=== PATIENT | male | born 1970 | race Caucasian/White ===

== ENCOUNTER 2021-05-11 07:20 | Outpatient (CLI) | payer OTHER, SELFPAY ==
--- NOTE | 2021-05-11 07:31 | XR_ITS ---
WS: [id number] 3 views of the left fifth finger, 05/11/2021 Clinical Data: AVULSION OF FINGERTIP Comparison: None. Findings: There is a soft tissue injury to the distal phalanx of the left fifth finger. There may be a small amrita ny fragment adjacent to the ungual tuft on the radial side of the distal phalanx. XR/XR finger LT min 2V [id number] Impression: Soft tissue injury to distal phalanx of left fifth finger.
== END 2021-05-11 07:21 | disposition home or self-care (01) ==
PROVIDERS: Visit Provider Orthopaedic Surgery
DX: S61.207A Unspecified open wound of left little finger without damage to nail, initial encounter (principal); X58.XXXA Exposure to other specified factors, initial encounter
CPT/HCPCS: 73140

== ENCOUNTER 2022-02-08 11:44 | Outpatient (CLI) | payer BC, MEDICAID, SELFPAY ==
[2022-02-08 12:08] VITALS: BMI 28.7
--- NOTE | 2022-02-08 12:11 | ECG_ITS ---
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 Interpretive Statements NAME OF STUDY: TREADMILL STRESS TEST INDICATION: Chest Pain, PROCEDURE: At the baseline, the patient's blood pressure was with a heart rate of. The baseline electrocardiogram showed sinus bradycardia with a some early repolarization changes. The patient exercised for 9 minutes on a standard Rashel protocol. Patient attained a maximum heart rate of 168 beats per minute(98% of the maximum predicted heart rate) with a blood pressure at the peak exercise of 155/80 mm Hg. The EKG at the peak exercise revealed no significant changes. Patient did not have any chest pain or any significant cardiac arrhythmias with the exercise During the recovery phase, there were no new changes. Blood pressure at the end of the recovery phase was 131/76 mm Hg with a heart rate of 97 per minute. CONCLUSION: 1. Normal EKG response to treadmill exercise 2. No exercise-induced chest pain or cardiac arrhythmia 3. Good exercise tolerance, attained a maximum of 10.2 METs Electronically Signed On 02-08-2022 14:15:39 CDT by Hardeep Marin M.D. [email or web address]
[2022-02-08 12:39] VITALS: BP 131/76; PULSE 97
== END 2022-02-08 11:45 | disposition home or self-care (01) ==
LOC: CDL 11:47
PROVIDERS: PCP Family Medicine; Visit Provider Family Medicine
DX: R07.9 Chest pain, unspecified (principal)
CPT/HCPCS: 93017

== ENCOUNTER 2022-03-26 05:56 | Outpatient (CLI) | payer BC, MEDICAID, SELFPAY ==
--- NOTE | 2022-03-26 | US_ITS ---
WS: [id number] TESTICULAR ULTRASOUND HISTORY: RIGHT testicle mass. COMPARISON: 02/26/2019 TECHNIQUE: Real-time and color Doppler imaging or utilized to perform a testicular ultrasound. Right testicle: 4.4 cm x 3.1 cm x 2.3 cm. Normal size testicle. No increased vascularity. Within the inferior wall of the testicle there is a v amy small nodule measuring 4 x 6 x 2 mm. Very nonspecific in etiology and could be a complex tunica a lbuginea cyst. This should be followed up by favor this will probably be benign. Normal color Doppler is present throughout. Systolic and diastolic velocities are both present. Small to moderate RIGHT hydrocele. Slightly increased since 2019. Right epididymis: Normal epididymis with no increased vascularity. Left testicle: 4.6 cm x 3.0 cm x 2.5 cm. Normal size and echogenicity. No mass or torsion. Normal color Doppler is present throughout. Systolic and diastolic velocities are both present. No significant hydrocele. Left epididymis: Normal epididymis with no increased vascularity. US/US scrotum [id number] IMPRESSION: 1. Small nodule in the periphery of the inferior RIGHT testicle measures 4 x 6 x 2 mm. Not definitely seen on the prior examination from 2019. Consider 3 mon th ultrasound follow-up. Favor this is probably benign and may be a complex chester ica albuginea cyst. 2. Small to moderate RIGHT hydrocele.
== END 2022-03-26 05:57 | disposition home or self-care (01) ==
LOC: RAD 05:56
PROVIDERS: PCP Family Medicine; Visit Provider Family Medicine
DX: N43.41 Spermatocele of epididymis, single (principal); I86.1 Scrotal varices; N49.2 Inflammatory disorders of scrotum; N43.3 Hydrocele, unspecified
CPT/HCPCS: 76870

== ENCOUNTER → 2022-04-13 07:19 | Outpatient (BNVA) | payer BC, MEDICAID, SELFPAY | PROVIDERS: PCP Family Medicine; Visit Provider Urology | DX: N43.3 Hydrocele, unspecified (principal) | CPT/HCPCS: 81003; 99203 ==

== ENCOUNTER → 2022-12-04 13:48 | Outpatient (BNVA) | payer BC, MEDICAID, SELFPAY | PROVIDERS: PCP Family Medicine; Visit Provider Urology | DX: N43.3 Hydrocele, unspecified (principal) | CPT/HCPCS: 81003 ==

== ENCOUNTER 2022-12-12 08:43 | Outpatient (CLI) | payer BC, MEDICAID, SELFPAY ==
--- NOTE | 2022-12-12 08:45 | MR_ITS ---
WS: [id number] MRI CERVICAL SPINE NONCONTRAST TECHNIQUE: Sagittal T1, T2 and STIR imaging. Axial T2, gradient, and fiesta imaging. CLINICAL INFORMATION: M54.2 - Cervicalgia COMPARISON: None. FINDINGS: Mild cervical curve. Straightening of the normal cervical lordosis. Slight anterolisthesis C6 on C7. C2-C3: Normal C3-C4: Mild facet arthropathy. Mild disc osteophytic ridging. Mild LEFT and no significant RIGHT fora bebeto narrowing. Mild facet arthropathy. C4-C5: Disc osteophyte complex with endplate ridging. Moderate RIGHT greater than LEFT bony foraminal narrowing. C5-C6: Disc osteophyte complex with endplate ridging. Small central protrusion with slight contact of the cervical cord. Mild central canal stenosis. Moderate facet arthropathy. Mild LEFT greater than R IGHT bony foraminal narrowing. C6-C7: Disc osteophyte complex with endplate ridging. Moderate facet arthropathy. Mild LEFT and no si gnificant RIGHT foraminal narrowing. C7-T1: Normal. Visualized brain stem structures: Normal. Prevertebral soft tissues: Normal. MR/MR cervical spin wo con* [id number] IMPRESSION: 1. No high-grade central canal stenosis. Cord signal is normal. 2. Disc osteophyte complex C5-C6 with slight indentation on cervical cord and mild central canal stenosis. 3. Mild to moderate bony foraminal narrowing worse at LEFT C3-C4, RIGHT C4-C5, and LEFT C6-C7. 4. Moderate facet arthropathy C4-C5, C5-C6, and C6-C7.
== END 2022-12-12 08:44 | disposition home or self-care (01) ==
LOC: RAD 08:45
PROVIDERS: PCP Family Medicine; Visit Provider Specialist
DX: M48.02 Spinal stenosis, cervical region (principal); M47.812 Spondylosis without myelopathy or radiculopathy, cervical region
CPT/HCPCS: 72141

== ENCOUNTER 2022-12-19 06:43 | Day surgery (SDC) | payer BC, MEDICAID, SELFPAY ==
[2022-12-18 08:44] VITALS: BMI 29.4
[2022-12-19] VITALS (12 sets, daily range): BP systolic 111–136; BP diastolic 71–89; PULSE 66–71; RESP 12–20; TEMP 36.1–36.8; O2SAT 90–99
--- NOTE | 2022-12-19 05:54 | P.HPUD_ITS ---
Surgery/Procedure H&P Update DATE OF PROCEDURE: December 19, 2022 DATE H&P PERFORMED: 12/04/22 H&P UPDATE INFORMATION: I have reviewed H&P completed within last 30 days, I have examined patient prior to procedure, No changes to prior documentation and [place] [facility] [place] indicated CHANGES TO PREVIOUS DOCUMENTATION: Patient marked appropriately on the right side PLANNED PROCEDURE: Operation Date: 12/19/22 08:20 Proposed Procedures p right hydrocele repair 91951,N43.3(Right) - Paolo Collazo MD
[2022-12-19] MEDS: sodium chloride 0.9% 1,000 ML 30 ML IV (07:22)
--- NOTE | 2022-12-19 07:32 | ANES.PREANE2 ---
Pre-Anesthetic Assessment Height/Weight: Height 1.78 m Weight 92.986 kg Temp Pulse Resp BP Pulse Ox O2 Del Method 97.0 F L 68 18 128/89 97 12/19/22 07:00 12/19/22 07:00 12/19/22 07:00 12/19/22 07:00 12/19/22 07:00 12/19/22 07:03 Preop Diagnosis: Right hydrocele, testicular pain Operation Date: 12/19/22 08:20 Proposed Procedures p right hydrocele repair 72813,N43.3(Right) - Paolo Collazo MD Familial anesthetic complications: PONV as a kid (tonsillectomy, broken arm) Was Beta Benitez taken within 24 hours: N/A Was Clonidine taken within 24 hours: N/A Last intake: Intake Last Liquid Date 12/19/22 Last Liquid Time 18:00 Last Solid Date 12/18/22 Last Solid Time 18:00 Social Tobacco and No alcohol Exam alert, oriented x 3, clear to auscultation bilaterally and regular rate & rhythm Airway Mallampati: Class III Dentition: full Pulmonary Asthma CV/HEM Hypertension Metabolic Hyperlipidemia Anesthetic Plan ASA status: 2 Anesthesia: General Risk of > 500 ml blood loss (7ml/kg in children): No Medications/Allergies Home Medications Medication Instructions Recorded Confirmed Last Taken Type cetirizine 10 mg tablet (All Day 10 mg PO DAILY PRN Allergy Symptoms 04/13/22 12/19/22 1 Month Ago History Allergy (cetirizine)) ~11/21/22 garlic 5,000 mcg tablet 5 mg PO DAILY 04/13/22 12/19/22 12/18/22 History ibuprofen 200 mg tablet 200 mg PO Q6H PRN Pain 04/13/22 12/19/22 2 Months Ago History ~10/21/22 ipratropium bromide 17 1 puff inhalation QID 04/13/22 12/19/22 6 Months Ago History mcg/actuation HFA aerosol inhaler ~06/21/22 (Atrovent HFA) lisinopril 20 mg tablet 20 mg PO DAILY 04/13/22 12/19/22 12/12/22 History lovastatin 40 mg tablet 40 mg PO DAILY 04/13/22 12/19/22 12/12/22 History omega 2-ene-mtx-fish oil 60 mg-90 1 cap PO DAILY 04/13/22 12/19/22 12/12/22 History mg-500 mg capsule (Fish Oil) theophylline 300 mg 300 mg PO Q12H 04/13/22 12/18/22 12/18/22 History tablet,extended release,12 hr Allergies Allergy/AdvReac Type Severity Reaction Status Date / Time No Known Allergies Allergy Verified 12/04/22 13:54 Current Medications Generic Name Dose Route Start Last Admin Trade Name Froylan PRN Reason Stop Dose Admin Sodium Chloride 1,000 mls @ 30 mls/hr 12/19/22 07:00 12/19/22 07:22 Sodium Chloride 0.9% IV 12/20/22 06:59 30 mls/hr .Q24H REBECCA Administration PFSH Anesthesia Medical History Amputation finger left fifth digit Asthma Epididymitis Fracture of wrist right H/O pneumothorax HTN (hypertension) Surgical History H/O: vasectomy Family History Mother , at age 23 Cancer uterine Father , at age 54 Heart attack Social History Smoking and tobacco status: current every day smoker Alcohol intake: never Marital status: Current occupational status: employed Data Anesthesia Cardiac Studies: No Data to Display
[2022-12-19] MEDS: ceFAZolin 2,000 MG in sodium chloride 0.9% (plus) 50 ML 100 MG IV (08:08)
--- NOTE | 2022-12-19 09:18 | P.OP_ITS ---
Operative Report Date of procedure: December 19, 2022 Pre-op diagnosis: Right hydrocele, testicular pain Post-op diagnosis: Right hydrocele, testicular pain Procedure done: RIGHT hydrocele repair, Lord's procedure Implants: None Specimens removed/disposition: None Pathology: None Surgeon: Vale Estimated blood loss: Minimal Urine output: Not measured Complications: None Findings: Anesthesia: General Condition: Stable Disposition: PACU Intraoperative findings: * Moderate size right hydrocele. Repaired with Lords technique. * Normal-appearing testicle Brief History: Loy is a 52-year-old white male with a small to moderate size right hydrocele and complaints of chronic right hemiscrotal pain when he crosses his legs and does physical activity. 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 Ultrasound showed no suspicious findings. There was an area on the inferior aspect of the kidney described as irregular but it was present on 2019 ultrasound as well and not palpably abnormal. Not suspicious. The hydrocele itself was not very impressive and he was heavily counseled regarding the possibility that if he has more testicular pain that he does pain related to the hydrocele that his symptoms may not improve with repair of the hydrocele. He was adamant about having it repaired. He was convinced that it was the volume that was causing problems and crossing legs and doing his physical activity. He acknowledged that there may still be significant or similar pain postop as there was preop for that reason Procedure: After routine preoperative evaluation examination and obtaining of informed consent and marking for laterality he was taken to the operating room on 12/19/2022 where general anesthesia was administered without difficulty after appropriate timeout was performed, laterality confirmed, preoperative an tibiotics administered, beta-frantz protocol confirmed. Prepped and draped in usual sterile fashion in supine position pain careful attention to avoiding pressure points. A midline median raphae incision was made over the right hemiscrotal contents and the incision was taken down through the skin to the tunica vaginalis. A small pocket was made in the subcutaneous tissue between the tunica vaginalis of the skin. The tunica vaginalis was opened adequately to deliver the testicle. Tunica vaginalis was then everted and then imbricated with interrupted absorbable sutures the testicle was carefully inspected and found to be normal in appearance and texture Hemostasis was visually confirmed both pre and post copious irrigation of the wound. Wound was closed with running 3-0 Vicryl for the dartos layer, 4-0 Vicryl for the subcuticular layer and Dermabond applied on top of the skin. Sterile dressing was applied after drying of the Dermabond, fluffed dressings were placed in his scrotal support. He tolerated procedure well without complications and was awakened in the operating room and returned to the room in stable condition. Plans: 1. Anticipate discharge from outpatient surgery today 2. Follow-up in 6 weeks for postop check. Call sooner for any concerns or questions 3. Emphasized avoid straining and lifting for couple weeks.
[2022-12-19] MEDS: fentaNYL 50 mcg/mL INJ 2mL IVP (09:28)
--- NOTE | 2022-12-19 14:54 | ANE.PACU2 ---
Inpatient post-anesthesia follow up: Airway intact: Yes Vital signs: Temperature 98.2 F Pulse Rate 66 Respiratory Rate 18 Blood Pressure 117/72 Pulse Oximetry 94 Oxygen Delivery Me thod Room Air Oxygen Flow Rate 8 Fraction of Inspir ed Oxygen Hydration adequate: Yes Nausea and vomiting: No Pain level: 1 Mental status: Baseline
== END 2022-12-19 10:19 | disposition home or self-care (01) ==
PROVIDERS: PCP Family Medicine; Visit Provider Urology
PROC: (CPT 55060; principal; 2022-12-19 08:10)
DX: N43.3 Hydrocele, unspecified (principal); N50.811 Right testicular pain; J45.909 Unspecified asthma, uncomplicated; I10 Essential (primary) hypertension; E78.5 Hyperlipidemia, unspecified; F17.200 Nicotine dependence, unspecified, uncomplicated
CPT/HCPCS: 55040; J0690; J1100; J1170; J1885; J2250; J2405; J2704; J3010; J3490; J7030

== ENCOUNTER 2023-01-30 11:40 | Outpatient (CLI) | payer BC, MEDICAID, SELFPAY ==
--- NOTE | 2023-01-30 11:52 | XR_ITS ---
WS: [id number] Lateral views of cervical spine in the flexion, extension and neutral positions. 01/30/2023 Clinical Data: M54.2 - Cervicalgia Comparison: None. Findings: There are no compression fractures. The disc spaces are normal. There is a small anterior inferior sp ur of C5. No prevertebral soft tissue swelling is seen. On flexion and extension there is no limitati on of motion or subluxation. XR/XR cervical spine fl/ex [id number] Impression: 1. Minimal spur of the anterior inferior aspect of C5. 2. On flexion and extension there is no limitation of motion or subluxation.
== END 2023-01-30 11:41 | disposition home or self-care (01) ==
PROVIDERS: PCP Family Medicine; Visit Provider Specialist
DX: G43.711 Chronic migraine without aura, intractable, with status migrainosus (principal); M19.90 Unspecified osteoarthritis, unspecified site; M54.2 Cervicalgia
CPT/HCPCS: 72040; 81003

== ENCOUNTER 2023-06-05 10:22 | Outpatient (CLI) | payer BC, MEDICAID, SELFPAY ==
--- NOTE | 2023-06-05 10:45 | CT_ITS ---
WS: [id number] LDCT LUNG CANCER SCREENING HISTORY: F17.210 - Nicotine dependence, cigarettes, uncomplicated TECHNIQUE: Axial imaging performed from the apices to 1 cm below the costophrenic angles. Coronal and sagittal reformats are submitted with axial MIP series. All CT scans at [facility] use at least one of these dose optimization techniques: automated exposure control; mA and/or kV adjustment per patient size (includes targeted exams where dose is matched to clinical indication); or iterativ e reconstruction. DLP: 83.89 mGy.cm DIvol: Mean CTDIvol: 1.50 (mGy) COMPARISON: None available. Diagnostic quality: Satisfactory Lungs: Moderate pulmonary hyperinflation with centrilobular and paraseptal emphysema. Noncalcified 8 mm nodule superior segment LEFT lower lobe. No additional nodule, mass or endobronchial lesions. Ther e is a thin septation which is probably retained mucus in the proximal LEFT upper lobe bronchus. Heart: Normal size heart with no pericardial effusion.. Other findings: No mediastinal or hilar adenopathy. No significant atherosclerosis aorta. Normal size d pulmonary artery. Normal adrenal glands. IMPRESSION: CT/CT lung screening [id number] LUNG-RADS: 4A-Probably Suspicious FOLLOW UP: 3 Month LDCT OTHER FINDINGS (S MODIFIER): None.
== END 2023-06-05 10:23 | disposition home or self-care (01) ==
PROVIDERS: PCP Family Medicine; Visit Provider Specialist
DX: Z12.2 Encounter for screening for malignant neoplasm of respiratory organs (principal); F17.210 Nicotine dependence, cigarettes, uncomplicated
CPT/HCPCS: 71271

== ENCOUNTER 2023-08-16 11:36 | Outpatient (CLI) | payer BC, MEDICAID, SELFPAY ==
--- NOTE | 2023-08-16 12:00 | CT_ITS ---
WS: [id number] CT CHEST TECHNIQUE: Noncontrast CT of the chest with coronal and sagittal reformatted images. CLINICAL INFORMATION: R91.1 - Solitary pulmonary nodule COMPARISON: CT lung screening 06/05/2023 DLP: 482.[address] scans at [facility] use at least one of these dose optimization techniques: automated e xposure control; mA and/or kV adjustment per patient size (includes targeted exams where dose is matc hed to clinical indication); or iterative reconstruction. FINDINGS: Moderate centrilobular and paraseptal emphysema. Noncalcified 8 mm nodule superior segment LEFT lower lobe. This is unchanged compared to previous. Additional stable nodule RIGHT upper lobe measuring 5. 6 mm Normal caliber thoracic aorta. No mediastinal or hilar lymphadenopathy. No axillary lymphadenopathy. Adrenal glands are normal. Chronic LEFT rib fractures with callus formation. IMPRESSION: 1. Stable 8 mm pulmonary nodule LEFT upper lobe compared to 06/05/2023. Recommend additional 6-month f ollow-up chest CT. 2. Additional small stable 5.6 mm nodule RIGHT upper lobe. 3. No mediastinal or hilar lymphadenopathy. 4. Moderate chronic emphysematous changes.
== END 2023-08-16 11:37 | disposition home or self-care (01) ==
LOC: RAD 11:36
PROVIDERS: PCP Family Medicine; Visit Provider Specialist
DX: R91.8 Other nonspecific abnormal finding of lung field (principal); J43.2 Centrilobular emphysema; F17.210 Nicotine dependence, cigarettes, uncomplicated; Z91.89 Other specified personal risk factors, not elsewhere classified
CPT/HCPCS: 71250

== ENCOUNTER 2023-10-09 09:40 | Outpatient (CLI) | payer BC, MEDICAID, SELFPAY ==
--- NOTE | 2023-10-09 09:43 | XR_ITS ---
WS: [id number] XR thoracic spine 3V* [id number] REASON FOR EXAM: M54.6 - Pain in thoracic spine FINDINGS: Thoracic scoliosis convex left, approximately 10 degrees. No significant kyphosis. No vertebral body abnormality. Mild narrowing of the intervertebral disc spaces in the mid and lower thoracic spine with mild osteop hytosis. IMPRESSION: Mild degenerative spondylosis.
== END 2023-10-09 09:41 | disposition home or self-care (01) ==
LOC: RAD 09:40
PROVIDERS: PCP Family Medicine; Visit Provider Anesthesiology Pain Medicine
DX: M47.814 Spondylosis without myelopathy or radiculopathy, thoracic region (principal)
CPT/HCPCS: 72072

== ENCOUNTER 2024-01-15 06:03 | Day surgery (SDC) | payer BC, MEDICAID, SELFPAY ==
[2024-01-15 06:24] VITALS: BP 116/85; PULSE 73; RESP 16; TEMP 36.5; O2SAT 97
[2024-01-15] MEDS: sodium chloride 0.9% 1,000 ML 30 ML IV (06:34)
--- NOTE | 2024-01-15 07:01 | ANES.PREANE2 ---
Pre-Anesthetic Assessment Height/Weight: Height 1.78 m Weight 92.986 kg Temp Pulse Resp BP Pulse Ox O2 Del Method 97.7 F 73 16 116/85 97 Room Air 01/15/24 06:24 01/15/24 06:24 01/15/24 06:24 01/15/24 06:24 01/15/24 06:24 01/15/24 06:24 Preop Diagnosis: GERD, colonoscopy Operation Date: 01/15/24 07:15 Proposed Procedures p 72400 egd 11412 screen colonoscopy G0121 screen colon a risk Z12.11,K21.9(Not Applicable) - Yosi Roberts DO s EGD(Not Applicable) - Yosi Roberts DO Familial anesthetic complications: no<del>ne</del> Was Beta Benitez taken within 24 hours: N/A Was Clonidine taken within 24 hours: N/A Last intake: Intake Last Liquid Date 01/14/24 Last Liquid Time 22:00 Last Solid Date 01/13/24 Last Solid Time 12:00 Last Intake: 22:00 Social Tobacco 2ppd pack(s) per day 20+ pack years Exam alert, oriented x 3, clear to auscultation bilaterally and regular rate & rhythm Airway Submandibular: within normal limits Cervical ROM: within normal limits Mallampati: Class II Dentition: full Pulmonary Asthma and Chronic Obstructive Pulmonary Disease CV/HEM Hypertension None reported Hepatic None reported GI Gastroesophageal Reflux Disease Metabolic None reported Musc/skel Lower Back Pain and Osteoarthritis/DJD Neuropsych None reported Anesthetic Plan ASA status: 3 Medications/Allergies Home Medications Medication Instructions Recorded Confirmed Last Taken Type cetirizine 10 mg tablet (All Day 10 mg PO DAILY PRN Allergy Symptoms 04/13/22 01/15/24 01/13/24 History Allergy (cetirizine)) garlic 5,000 mcg tablet 5 mg PO DAILY 04/13/22 01/15/24 01/13/24 History ipratropium bromide 17 1 puff inhalation QID 04/13/22 01/13/24 2 Weeks Ago History mcg/actuation HFA aerosol inhaler ~12/30/23 (Atrovent HFA) lisinopril 20 mg tablet 20 mg PO DAILY 04/13/22 01/15/24 01/15/24 History lovastatin 40 mg tablet 40 mg PO DAILY 04/13/22 01/15/24 01/13/24 History omega 3-cgh-yeu-fish oil 60 mg-90 1 cap PO DAILY 04/13/22 01/15/24 01/13/24 History mg-500 mg capsule (Fish Oil) theophylline 300 mg 300 mg PO Q12H 04/13/22 01/15/24 01/15/24 History tablet,extended release,12 hr pantoprazole 40 mg tablet,delayed 40 mg PO BID 6 weeks #84 tabs 12/09/23 01/13/24 01/13/24 Rx release (Protonix) tizanidine 4 mg tablet 4 mg PO BID PRN muscle spasticity 12/16/23 01/13/24 01/12/24 Rx #60 tabs Allergies Allergy/AdvReac Type Severity Reaction Status Date / Time No Known Allergies Allergy Verified 05/30/23 07:52 Current Medications Generic Name Dose Route Start Last Admin Trade Name Freq PRN Reason Stop Dose Admin Sodium Chloride 1,000 mls @ 30 mls/hr 01/15/24 06:15 01/15/24 06:34 Sodium Chloride 0.9% IV 01/16/24 06:14 30 mls/hr .Q24H REBECCA Administration PFSH Anesthesia Medical History HTN (hypertension) Asthma Epididymitis H/O pneumothorax Fracture of wrist right Amputation finger left fifth digit Surgical History H/O: vasectomy Family History Mother , at age 23 Cancer uterine Father , at age 54 Heart attack Social History Smoking and tobacco/nicotine status: current every day tobacco/nicotine user Alcohol intake: never Marital status: Current occupational status: employed Data Anesthesia Cardiac Studies: No Data to Display
--- NOTE | 2024-01-15 07:06 | PM.HP ---
Providers/Chief Complaint Primary Care Provider: Matthew Otto MD Chief Complaint: Z12.11 History of Present Illness Loy Santos is a 53 year old male Review of Systems General: Reports: 10 or more systems reviewed and unremarkable except in HPI and below Medications/Allergies Home Medications Medication Instructions Recorded Confirmed Last Taken Type cetirizine 10 mg tablet (All Day 10 mg PO DAILY PRN Allergy Symptoms 04/13/22 01/15/24 01/13/24 History Allergy (cetirizine)) garlic 5,000 mcg tablet 5 mg PO DAILY 04/13/22 01/15/24 01/13/24 History ipratropium bromide 17 1 puff inhalation QID 04/13/22 01/13/24 2 Weeks Ago History mcg/actuation HFA aerosol inhaler ~12/30/23 (Atrovent HFA) lisinopril 20 mg tablet 20 mg PO DAILY 04/13/22 01/15/24 01/15/24 History lovastatin 40 mg tablet 40 mg PO DAILY 04/13/22 01/15/24 01/13/24 History omega 9-jvf-ryi-fish oil 60 mg-90 1 cap PO DAILY 04/13/22 01/15/24 01/13/24 History mg-500 mg capsule (Fish Oil) theophylline 300 mg 300 mg PO Q12H 04/13/22 01/15/24 01/15/24 History tablet,extended release,12 hr pantoprazole 40 mg tablet,delayed 40 mg PO BID 6 weeks #84 tabs 12/09/23 01/13/24 01/13/24 Rx release (Protonix) tizanidine 4 mg tablet 4 mg PO BID PRN muscle spasticity 12/16/23 01/13/24 01/12/24 Rx #60 tabs Allergies Allergy/AdvReac Type Severity Reaction Status Date / Time No Known Allergies Allergy Verified 05/30/23 07:52 PFSH Acute PFSH: Medical History HTN (hypertension) Asthma Epididymitis H/O pneumothorax Fracture of wrist right Amputation finger left fifth digit Surgical History H/O: vasectomy Family History Mother , at age 23 Cancer uterine Father , at age 54 Heart attack Social History Smoking and tobacco/nicotine status: current every day tobacco/nicotine user Alcohol intake: never Marital status: Current occupational status: employed Vitals/I&O/Wt Last Vital Signs Temp 97.7 F 01/15/24 06:24 Pulse 73 01/15/24 06:24 Resp 16 01/15/24 06:24 BP 116/85 01/15/24 06:24 Pulse Ox 97 01/15/24 06:24 O2 Del Method Room Air 01/15/24 06:24 Weight last 48 hrs Weight 205 lb A&P Assessment and plan (1) GERD (gastroesophageal reflux disease): (2) Colon cancer screening: Plan EGD and colonoscopy Attestations Medical Necessity Statement*: Home Coding Level of Care Code Acute Code for Chg Fwd Diagnoses GERD (gastroesophageal reflux disease) K21.9 Colon cancer screening Z12.11
[2024-01-15 08:01] VITALS: BP 94/59; PULSE 76; RESP 16; TEMP 36.5; O2SAT 93
[2024-01-15 08:09] VITALS: BP 109/73; PULSE 79; RESP 16; O2SAT 91
[2024-01-15 08:21] VITALS: BP 102/80; PULSE 71; RESP 18; O2SAT 96
--- NOTE | 2024-01-15 14:03 | ANE.PACU2 ---
Inpatient post-anesthesia follow up: Vital signs: Temperature 97.7 F Pulse Rate 71 Respiratory Rate 18 Blood Pressure 102/80 Pulse Oximetry 96 Oxygen Delivery Me thod Room Air Oxygen Flow Rate 4 Fraction of Inspir ed Oxygen Hydration adequate: Yes Nausea and vomiting: No Mental status: Baseline Additional Comments: no apparent anesthetic complications noted
== END 2024-01-15 08:35 | disposition home or self-care (01) ==
PROVIDERS: PCP Family Medicine; Visit Provider Surgery
PROC: 0DJD8ZZ Inspection of Lower Intestinal Tract, Via Natural or Artificial Opening Endoscopic (ICD-10-PCS; CPT 45378; 2024-01-15 07:15)
DX: Z12.11 Encounter for screening for malignant neoplasm of colon (principal); D12.5 Benign neoplasm of sigmoid colon; K22.2 Esophageal obstruction; K29.80 Duodenitis without bleeding; K29.70 Gastritis, unspecified, without bleeding; I10 Essential (primary) hypertension; F17.200 Nicotine dependence, unspecified, uncomplicated; J44.9 Chronic obstructive pulmonary disease, unspecified
CPT/HCPCS: 43249; 45385; 88305; J2704; J7030

== ENCOUNTER → 2024-01-20 11:36 | Outpatient (BNVA) | payer BC, MEDICAID, SELFPAY | PROVIDERS: PCP Family Medicine; Visit Provider Anesthesiology Pain Medicine | DX: M25.552 Pain in left hip (principal); M25.551 Pain in right hip; M25.561 Pain in right knee; M25.562 Pain in left knee | CPT/HCPCS: 73522; 73564 ==

== ENCOUNTER → 2024-04-23 10:41 | Outpatient (BNVA) | payer BC, MEDICAID, SELFPAY | PROVIDERS: PCP Family Medicine; Visit Provider Nurse Practitioner Family | DX: I10 Essential (primary) hypertension (principal); J45.909 Unspecified asthma, uncomplicated; E78.5 Hyperlipidemia, unspecified; R19.7 Diarrhea, unspecified | CPT/HCPCS: 80053; 80061; 80198; 86003; 86008 ==

== ENCOUNTER → 2024-04-24 08:05 | Outpatient (BNVA) | payer BC, MEDICAID, SELFPAY | PROVIDERS: PCP Family Medicine; Visit Provider Nurse Practitioner Family | DX: R19.7 Diarrhea, unspecified (principal) | CPT/HCPCS: 87045; 87427; 87449 ==

== ENCOUNTER 2024-06-18 10:38 | Outpatient (CLI) | payer BC, MEDICAID, SELFPAY ==
--- NOTE | 2024-06-18 11:15 | CT_ITS ---
WS: [id number] LDCT LUNG CANCER SCREENING HISTORY: F17.210 - Nicotine dependence, cigarettes, uncomplicated TECHNIQUE: Axial imaging performed from the apices to 1 cm below the costophrenic angles. Coronal and sagittal reformats are submitted with axial MIP series. All CT scans at [facility] use at least one of these dose optimization techniques: automated exposure control; mA and/or kV adjustment per patient size (includes targeted exams where dose is matched to clinical indication); or iterativ e reconstruction. DLP: 74.19 mGy.cm DIvol: Mean CTDIvol: 1.30 (mGy) COMPARISON: 08/16/2023, 06/05/2023 Diagnostic quality: Satisfactory Lungs: Marked pulmonary paraseptal emphysema. Stable 7.5 mm nodule LEFT lower lobe. Additional 5 mm n odule RIGHT middle lobe is stable. No pneumonia or endobronchial lesions. Heart: Normal size heart with no pericardial effusion.. Other findings: No adenopathy. Normal size aorta. Normal pulmonary artery. No chest wall abnormalitie s. Prior healed rib fractures in the posterior LEFT thorax. No adrenal mass. CT/CT lung screening [id number] IMPRESSION: LUNG-RADS: 2-Benign Appearance or Behavior FOLLOW UP: 12 Month: Continue annual screening with LDCT OTHER FINDINGS (S MODIFIER): None.
== END 2024-06-18 10:39 | disposition home or self-care (01) ==
LOC: RAD 10:38
PROVIDERS: PCP Family Medicine; Visit Provider Specialist
DX: Z12.2 Encounter for screening for malignant neoplasm of respiratory organs (principal); F17.210 Nicotine dependence, cigarettes, uncomplicated; J43.9 Emphysema, unspecified; R91.8 Other nonspecific abnormal finding of lung field
CPT/HCPCS: 71271

== ENCOUNTER → 2024-11-13 12:01 | Outpatient (BNVA) | payer BC, MEDICAID, SELFPAY | PROVIDERS: PCP Nurse Practitioner Family; Visit Provider Nurse Practitioner Family | DX: Z13.9 Encounter for screening, unspecified (principal); I10 Essential (primary) hypertension | CPT/HCPCS: 80053; 80061 ==

== ENCOUNTER 2025-02-24 09:49 | Outpatient (CLI) | payer BC, MEDICAID, SELFPAY ==
[2025-02-24 10:05] VITALS: BMI 27.8
--- NOTE | 2025-02-24 10:09 | ECG_ITS ---
[facility]24 Pat Name: Loy Santos Department: Room: Gender: Male Certified Meeting Professional: : 1970 Requested By: Bobbi Mendez Order Number: [id number] Jacqui MD: GABINO HOLMAN Interpretive Statements Lung unchanged pre/post procedure; Intraprocedure shortess of breath; Symptoms resoled by discharge EXERCISE DATA: The patient was exercised by Rashel protocol. Baseline heart rate was 83 beats per minute. Baseline blood pressure was 121/71 millimeters of mercury. Target heart rate was 168 beats per minute. Maximum heart rate achieved was 157, which was 93 % of the target heart rate. Maximum blood pressure was 163/83 millimeters of mercury. Total exercise time was 8 minutes 24 seconds. Maximum METs achieved was 10.2, maximum VO2 was 35.7. The reason for ending the test was maximum effort achieved. The patient complained of shortness of breath during the stress test, which then resolved at the end of the test. ELECTROCARDIOGRAM: BASELINE: Showed sinus rhythm, normal axis, no significant ST-T changes at the baseline noted. EXERCISE: At the peak exercise level, no significant ST-T changes suggestive of ischemia noted. RECOVERY: During the recovery period, heart rate dropped appropriately. No significant ST-T changes in the recovery suggestive of ischemia noted. CONCLUSION: 1. Exercise capacity good. 2. Heart rate response was appropriate. 3. Blood pressure response was appropriate. 4. Symptoms not suggestive of ischemia. 5. Electrocardiogram portion of the stress test was not suggestive of ischemia. Electronically Signed On 03-06-2025 23:46:13 CDT by GABINO HOLMAN [email or web address]
[2025-02-24 10:11] VITALS: PULSE 78; RESP 18; O2SAT 98
[2025-02-24] MEDS: albuterol 2.5 mg/3 mL Neb INHALATION (10:11)
[2025-02-24 11:00] VITALS: BP 132/64; PULSE 81
== END 2025-02-24 09:50 | disposition home or self-care (01) ==
LOC: RT 09:50 → CDL 10:04
PROVIDERS: PCP Nurse Practitioner Family; Visit Provider Nurse Practitioner Family
DX: J45.20 Mild intermittent asthma, uncomplicated (principal); R06.09 Other forms of dyspnea; R94.2 Abnormal results of pulmonary function studies
CPT/HCPCS: 93017; 94060; 94726; 94729; J7613

== ENCOUNTER → 2025-06-14 10:19 | Outpatient (BNVA) | payer BC, MEDICAID, SELFPAY | PROVIDERS: PCP Nurse Practitioner Family; Visit Provider Nurse Practitioner Family | DX: I10 Essential (primary) hypertension (principal); E78.5 Hyperlipidemia, unspecified | CPT/HCPCS: 80053; 80061 ==

== ENCOUNTER → 2025-06-15 10:56 | Outpatient (BNVA) | payer BC, MEDICAID, SELFPAY | PROVIDERS: PCP Nurse Practitioner Family; Visit Provider Nurse Practitioner Family | DX: R19.7 Diarrhea, unspecified (principal) | CPT/HCPCS: 87177; 87209 ==

== ENCOUNTER 2025-07-21 09:43 | Outpatient (CLI) | payer BC, MEDICAID, SELFPAY ==
--- NOTE | 2025-07-21 10:00 | CT_ITS ---
WS: [id number] LDCT LUNG CANCER SCREENING TECHNIQUE: Noncontrast CT of the chest with coronal and sagittal reformatted images. CLINICAL INFORMATION: F17.200 - Nicotine dependence, unspecified, uncomplicated COMPARISON: None. DLP: 65.01 mGy.cm DIvol: Mean CTDIvol: 1.00 (mGy) All CT scans at [facility] use at least one of these dose optimization techniques: automated exposure control; mA and/or kV adjustment per patient size (includes targeted exams where dose is matched to clinical indication); or iterative reconstruction. FINDINGS: Stable 7.5 mm LEFT lower lobe nodule. Stable nodule RIGHT middle lobe measuring 5 mm. Chronic paraseptal emphysematous change. No new suspicious pulmonary parenchymal abnormalities. Multiple chronic LEFT rib fractures with callus formation. Mild thoracic kyphosis. Aortic calcification. No mediastinal or hilar lymphadenopathy. No axillary lymphadenopathy. Adrenal glands are normal. CT/CT lung screening [id number] IMPRESSION: LUNG-RADS: 2-Benign Appearance or Behavior FOLLOW UP: 12 Month: Continue annual screening with LDCT
== END 2025-07-21 09:44 | disposition home or self-care (01) ==
LOC: RAD 09:44
PROVIDERS: PCP Nurse Practitioner Family; Visit Provider Nurse Practitioner Family
DX: Z12.2 Encounter for screening for malignant neoplasm of respiratory organs (principal); F17.200 Nicotine dependence, unspecified, uncomplicated; R91.8 Other nonspecific abnormal finding of lung field; J43.8 Other emphysema
CPT/HCPCS: 71271